=== PATIENT | female | born 1935 | race Caucasian/White ===

== ENCOUNTER → 2020-06-17 | Outpatient (CLI) | payer OTHER | LOC: HYPER 12:49 | PROVIDERS: ATTEND Emergency Medicine | DX: L89.893 Pressure ulcer of other site, stage 3 (principal); L84 Corns and callosities; G60.3 Idiopathic progressive neuropathy; I70.91 Generalized atherosclerosis; I73.9 Peripheral vascular disease, unspecified; I10 Essential (primary) hypertension; E78.5 Hyperlipidemia, unspecified; E89.0 Postprocedural hypothyroidism; K21.9 Gastro-esophageal reflux disease without esophagitis; M14.671 Charcot's joint, right ankle and foot; M85.80 Other specified disorders of bone density and structure, unspecified site; Z87.891 Personal history of nicotine dependence ==

== ENCOUNTER → 2020-07-02 | Outpatient (CLI) | payer OTHER | LOC: HYPER 09:01 | PROVIDERS: ATTEND Emergency Medicine | DX: L89.893 Pressure ulcer of other site, stage 3 (principal); L84 Corns and callosities; G60.3 Idiopathic progressive neuropathy; I70.91 Generalized atherosclerosis; I73.9 Peripheral vascular disease, unspecified; I10 Essential (primary) hypertension; E78.5 Hyperlipidemia, unspecified; E89.0 Postprocedural hypothyroidism; K21.9 Gastro-esophageal reflux disease without esophagitis; M14.671 Charcot's joint, right ankle and foot; M85.80 Other specified disorders of bone density and structure, unspecified site; Z87.891 Personal history of nicotine dependence ==

== ENCOUNTER → 2020-07-16 | Outpatient (CLI) | payer OTHER | LOC: HYPER 10:58 | PROVIDERS: ATTEND Emergency Medicine | DX: L89.893 Pressure ulcer of other site, stage 3 (principal); L84 Corns and callosities; G60.3 Idiopathic progressive neuropathy; I70.91 Generalized atherosclerosis; I73.9 Peripheral vascular disease, unspecified; I10 Essential (primary) hypertension; E78.5 Hyperlipidemia, unspecified; E89.0 Postprocedural hypothyroidism; K21.9 Gastro-esophageal reflux disease without esophagitis; M14.671 Charcot's joint, right ankle and foot; M85.80 Other specified disorders of bone density and structure, unspecified site; Z87.891 Personal history of nicotine dependence ==

== ENCOUNTER → 2020-07-30 | Outpatient (CLI) | payer OTHER | LOC: HYPER 11:54 | PROVIDERS: ATTEND Emergency Medicine | DX: L89.893 Pressure ulcer of other site, stage 3 (principal); L84 Corns and callosities; G60.3 Idiopathic progressive neuropathy; I70.91 Generalized atherosclerosis; I73.9 Peripheral vascular disease, unspecified; I10 Essential (primary) hypertension; E78.5 Hyperlipidemia, unspecified; E89.0 Postprocedural hypothyroidism; K21.9 Gastro-esophageal reflux disease without esophagitis; M14.671 Charcot's joint, right ankle and foot; M85.80 Other specified disorders of bone density and structure, unspecified site; Z87.891 Personal history of nicotine dependence ==

== ENCOUNTER 2020-08-07 09:20 | Inpatient (IN) | payer OTHER ==
[~2020-08-07] VITALS: Ht 167.6 cm; Wt 52.2 kg
--- NOTE | ~2020-08-07 | O ---
[facility] [place] [address] [place] [address] OPERATIVE REPORT Name: TRI ACHARYA Room #: 150-1 ADM IN M.R.#: [id number] Admission: 08/14/20 Attend Phys: Agustín Watt MD Discharge: Date of : 39 Report #: [id number] THIS REPORT FOR: cc: Greer Ballesteros MD, Laurie Dawn MD Kneidel,Agustín Padilla MD ~ DATE OF SERVICE: 08/14/2020 PREOPERATIVE DIAGNOSES: 1. Right foot nonhealing wound. 2. Right foot rocker bottom deformity. POSTOPERATIVE DIAGNOSES: 1. Right foot nonhealing wound. 2. Right foot rocker bottom deformity. PROCEDURES: 1. Right foot irrigation and debridement. 2. Right foot plantar ostectomy. SURGEON: Dr. Agustín Watt. PROCESS TECHNICIAN: Juliana Carrington. ANESTHESIA: General. ESTIMATED BLOOD LOSS: Minimal. DRAINS: One Hemovac drain was placed. COMPLICATIONS: There were no complications. DESCRIPTION OF PROCEDURE: The patient brought to the operating room where she was placed under general anesthesia. Once under adequate general anesthesia, her right lower extremity was prepped and draped in a sterile manner. The extremity was elevated and tourniquet placed to 300 mmHg. A lateral incision 4-5 cm in length was then made over the lateral mid foot, dissected directly plantar down to the plantar cuboid, which was protruding in the plantar foot. This was causing the plantar wound. Cultures were taken at this time. A sagittal saw was then used to transect the plantar cuboid as well as any protruding bone in the plantar foot. This was then removed utilizing a rongeur. This was smoothed off with a rongeur as well, leaving a smooth surface on the plantar foot the patient to ambulate on. The wound was then irrigated copiously and closed over a Hemovac drain with 2-0 nylon suture for the skin. The wound was dressed with Xeroform, 4 x 4s, and sterile soft compressive dressing was [facility] [address] [place] [address] OPERATIVE REPORT Name: TRI ACHARYA Room #: [address] [place] [address] IN ..#: [id number] Admission: 08/14/20 Attend Phys: Agustín Watt MD Discharge: Date of : 39 Report #: [id number]. Tourniquet was let down approximately 20 minutes. Toes were pink and warm with good capillary refill. There were no complications from the procedure. The patient tolerated the procedure well and was taken to recovery room without incident. By: 1138 [id number] Agustín Watt MD /nt
[2020-08-12] MEDS ORDERED: MIRAPEX ER1.5 MG PO (12:54)
[2020-08-12] MEDS ORDERED: WELLBUTRIN SR150 M1 PO (12:55)
[2020-08-12] MEDS ORDERED: ESCITALOPRAM OX20 MG PO (12:55)
[2020-08-12] MEDS ORDERED: KEFLEX500 M1 PO (12:56)
[2020-08-12] MEDS ORDERED: COZAAR 50 MG TA50 MG PO (12:56)
[2020-08-12] MEDS ORDERED: GABAPENTIN600 M1 PO (12:57)
[2020-08-12] MEDS ORDERED: CARBIDOPA-LEVO1 EAC9 PO (12:58)
[2020-08-12] MEDS ORDERED: PLAQUENIL200 MG PO (13:00)
[2020-08-12] MEDS ORDERED: DICLOFENAC SODI75 MG PO (13:00)
[2020-08-14 09:55] VITALS: BP 162/76
[2020-08-14 15:00] VITALS: BP 137/78
--- NOTE | 2020-08-14 15:12 | EKG ---
[place] [address] [facility] [place] [address] ELECTROCARDIOGRAM REPORT Name: TRI ACHARYA Room #: 433-I [facility] IN .R.#: [id number] Admission: 08/14/20 Attend Phys: Agustín Watt MD Discharge: Date of : 39 Report #: [id number] [facility] Test Date: 2020-08-14 Test Time: 09:56:37 Pat Name: TRI ACHARYA Department: Room: [facility] Gender: F Dag Sprayer: KATE : 1935 Requested By: Agustín Watt Order Number: [id number] MD: Lamonte Jordan Measurements Intervals [place] Rate: 69 P: 57 ME: 191 QRS: -40 QRSD: 106 T: 50 QT: 452 QTc: 485 Interpretive Statements Sinus rhythm Inferior infarct, old Baseline wander in lead(s) I,III,aVL,V4 No previous ECG available for comparison Electronically Signed On 08-14-2020 15:12:37 CDT by Lamonte Jordan [email or web address] <ELECTRONICALLY SIGNED> By: Lamonte Jrodan MD, [facility] 08/14/20 1512 Lamonte Jordan MD, [facility] /EPI
[2020-08-14] MEDS ORDERED: ASA81BEC PO (16:00)
[2020-08-14] MEDS ORDERED: BIOTIN2500 MCG PO (16:02)
[2020-08-14] MEDS ORDERED: PREDNISONE 5 MG5 MG PO (16:03)
[2020-08-14] MEDS ORDERED: LEVO-T75 MCG PO (16:05)
[2020-08-14] MEDS ORDERED: OMEPRAZOLE 20 M20 M1 PO (16:05)
[2020-08-14] MEDS ORDERED: VITAMIN B-121000 MC2 PO (16:06)
[2020-08-14] MEDS ORDERED: VITAMIN D325 MC1 PO (16:07)
[2020-08-14] MEDS ORDERED: ROSUVASTATIN CA20 MG PO (16:07)
--- NOTE | 2020-08-14 16:15 | NUR ---
ASSUMED PT CARE AT 1440. PT IS ALERT & ORIENTED X4. PT HAD A R FOOT I & D. PT C/O OF PAIN AND GIVEN PAIN MEDICATION. PT GRANDDAUGHTER AT THE BEDSIDE. PT ON THE BED WATCHING TV, BED ON THE LOWEST POSITION, SIDE RAILS UP, CALL LIGHT WITHIN REACH. WILL CONTINUE TO MONITOR PT. FOLLOW POC.
[2020-08-14 17:00] LABS: ABSOLUTE NEUTROPHILS 5.2 thou/uL (1.4-8.2); BASOPHILS 0.8 % (0.0-2.0); EOSINOPHILS 2.1 % (0.0-3.0); HEMATOCRIT 30.8 % (37.0-47.0); HEMOGLOBIN 10.3 gm/dL (12.0-15.0); LYMPHOCYTES 10.8 % (24.0-44.0); MCH 27.8 pg (26.0-34.0); MCHC 33.3 g/dL (28.0-37.0); MCV 83.4 fL (80.0-100.0); MONOCYTES 6.5 % (1.0-8.0); PLATELET COUNT 242 thou/uL (150-400); POLYS 79.8 % (36.0-66.0); WBC 6.5 thou/uL (4.0-11.0)
[2020-08-14 17:15] LABS: ALBUMIN 3.5 g/dL (3.4-5.0); CALCIUM 9.1 mg/dL (8.5-10.1); CREATININE 0.7 mg/dL (0.6-1.0); POTASSIUM 3.4 mmol/L (3.5-5.1); TOTAL BILIRUBIN 0.4 mg/dL (0.2-1.0); TOTAL PROTEIN 6.8 g/dL (6.4-8.2)
[2020-08-14 19:45] VITALS: BP 143/85
--- NOTE | 2020-08-15 01:21 | NUR ---
ASSESSED AT START OF SHIFT PT DENIES PAIN ON ASSESSMENT. FAMILY BY BEDSIDE. IV INTACT AND ABX GIVEN. RT FOOT DRESSING C/D/I WITH HEMOVAC IN PLACE ELEVATED ON PILLOW. NON WIEGHT BEARING ON THAT RT RT LEG. FALL PREC IN PLACE POTASSIUM PILL GIVEN X1 3.[address] ORDER. SCD'S IN PLACE AND FALL PREC IN PLACE WILL CONT TO MONITOR.
[2020-08-15 03:17] VITALS: BP 139/79
[2020-08-15 05:06] LABS: HEMATOCRIT 31.3 % (37.0-47.0); HEMOGLOBIN 10.1 gm/dL (12.0-15.0)
[2020-08-15 05:46] LABS: POTASSIUM 4.2 mmol/L (3.5-5.1)
[2020-08-15 07:56] VITALS: BP 122/71
--- NOTE | 2020-08-15 10:17 | NUR ---
ASSUMED CARE OF PT AT 0700 THIS MORNING. PT WAS ADMITTED POST OP FOR SURGERY ON RIGHT FOOT. DRESSING ON RIGHT FOOT CDI WITH VACUPUMP AND FAITH WRAP. PT IS A/OX4, EYES PERRLA, SKIN INTACT, W/D/P, NO TENTING. LUNGS CLEAR BILAT, ABD SOFT NONNDER, IV IN RIGHT HAND SL, CR<3SEC, ASSESSMENT OTHERWISE UNREMARKABLE. PT C/O PAIN IN RIGHT FOOT AT 5 ON 1/10 SCALE. PT WAS GIVEN HYDRO/APAP FOR PAIN. PHYS TH. WORKED WITH PT THIS MORNING WITH NO WEIGHT BEARING ON RIGHT FOOT. PT DID WELL AND IS NOW SITIING IN THE CHAIR. CALL LIGHT AND OTHER NEEDS IN REACH.
--- NOTE | 2020-08-15 12:28 | NUR ---
ASSESSMENT: CM REVIEWED CHART AND MET WITH PT AT THE BEDSIDE. PT IS ALERT AND ORIENTED X4. PT REPORTS THAT SHE LIVES IN AN APT WITH HER . PT REPORTS THAT SHE HAS A CANE AND WALKER AT HOME. PT WAS ADMITTED AFTER I&D DUE TO RIGHT FOOT WOUND. PT WILL BE NWB FOR ABOUT 3 WEEKS. [facility] WAS CONSULTED TO EVALUATE PT. CM SPOKE WITH [employer]N RIDE MECHANIC WHO REPORTS SHE WILL TALK WITH ID ABOUT THE DURATION OF IV ANBX. PT IS AGREEABLE TO [facility] BUT IF THEY CANNOT ACCEPT SHE STATES SHE HAS BEEN TO [facility] IN THE PAST AND IS OPEN TO GOING THERE. CM FAXED REFERRAL TO [facility] A BACKUP PLAN. PT REMAINS ON IV ANBX. AWAITING FURTHER INPUT FROM [facility]. CM WILL CONTINUE TO FOLLOW TO ASSIST NEEDED.
--- NOTE | 2020-08-15 12:31 | HC ---
[facility] [place] [address] CONSULTATION Name: TRI ACHARYA Room #: 433-I ADM IN .R.#: [id number] Admission: 08/14/20 Attend Phys: Agustín Watt MD Discharge: Date of : 39 Report #: [id number] THIS REPORT FOR: cc: Greer Ballesteros MD, Laurie Dawn MD Barry, Joseph W. MD ~ DATE OF SERVICE: 08/14/2020 INFECTIOUS DISEASE CONSULTATION ATTENDING PHYSICIAN: Dr. Watt. 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 HISTORY OF PRESENT ILLNESS: Chart reviewed, patient examined. This is an 84-year-old woman with history of rheumatoid arthritis, which has been complicated by Charcot deformity of her right foot. There is chronic ulceration overlying the mid portion. She does have a degree of peripheral neuropathy as well. She noted onset of ulceration several months ago, which has been debrided at least once. Cultures have been collected. She has been on antibiotics periodically, although she is unaware of any positive culture results. She has been followed by the wound care center with serial debridements, the absence of healing over the course of the last recent days, noted a malodorous drainage from the site. She was initiated on antibiotics, she is not certain which one. Due to concerns, she undergo MRI which is not available to me, but apparently showed some changes. She was admitted and underwent operative right foot irrigation and debridement of the plantar with plantar osteectomy. She is seen postoperatively. She does admit to pain. On questioning, she denies any systemic illness. No fevers or chills. Appetite has been diminished overall and she has had a 30-pound weight loss. No pulmonary-related complaints. ALLERGIES: None known. CURRENT MEDICATIONS: Include aspirin, hydrocodone, morphine. PAST MEDICAL HISTORY: As noted above, rheumatoid arthritis, obstructive sleep apnea, iron deficiency anemia. SOCIAL HISTORY: She is , former smoker, occasional ethanol, no illicit drug use. FAMILY HISTORY: Noncontributory. REVIEW OF SYSTEMS: Otherwise, unremarkable. [facility] [address] [place] [address] CONSULTATION Name: TIR ACHARYA Room #: 433-I [facility] IN [facility].#: [id number] Admission: 08/14/20 Attend Phys: Agustín Watt MD Discharge: Date of : 39 Report #: [id number] PHYSICAL EXAMINATION: GENERAL: She is alert, cooperative, appropriate. She appears somewhat chronically ill and undernourished, is pleasant, lucid. VITAL SIGNS: Temperature 97.7, pulse 67, respirations 18, blood pressure 137/78. SKIN: Warm, dry, no rashes. HEENT: Normocephalic. Extraocular muscles intact. NECK: Supple. LUNGS: Generally clear to auscultation. Somewhat diminished at the bases. There are few scattered crackles. HEART: Regular. I do not appreciate a murmur. ABDOMEN: Soft, nontender, nondistended. EXTREMITIES: Right lower extremity has an operative dressing with compression in place. JACINTA drain. GENITOURINARY AND RECTAL: Deferred. LABORATORY DATA: Drainage was collected for culture. Gram stain showed a few wbc's, no organisms seen. Coronavirus testing was negative as well. ASSESSMENT AND PLAN: Chronic ulceration involving the right foot Charcot deformity in a patient with rheumatoid arthritis who like to underwent partial osteoectomy. We will treat empirically with parenteral antimicrobials at this point, but try to obtain additional records in terms of previous cultures on when she has been on recently in terms of antimicrobials. Given the malodor, I would be concerned about a mixed infection. 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 We will check some baseline laboratory. Continue wound care as prescribed. Discussed with the patient and her daughter. <ELECTRONICALLY SIGNED> By: Nico White MD 08/15/20 1231 1619 41 Nico White MD /nt
[2020-08-15 16:43] VITALS: BP 151/87
[2020-08-15 20:51] VITALS: BP 142/85
--- NOTE | 2020-08-16 01:14 | NUR ---
ASSESSED AT START OF SHIFT. PT A&OX4 UP WITH ASSITX1 TO THE BSC. NWB ON THE RT FOOT. DRESSING C/D/I WITH HEMOVAC IN PLACE. RATES PAIN 10. ON RA, DENIES N/V. IV INTACT AND ABX INFUSING. FALL PREC IN PLACE AND CALL LIGHT AT REACH WILL CONT TO MONITOR.
[2020-08-16 07:10] VITALS: BP 111/73
--- NOTE | 2020-08-16 11:52 | NUR ---
ASSUMED PT CARE AROUND 0715. PT ALERT ORIENTED X 4. ON ROOM AIR.IV RT FA/ SALINE LOCKED.RT FOOT FAITH WRAPPED. 1 X PERSON ASST, NON WEIGHT BEARING OF RT FOOT.ON REGULAR DIET.FALL PRECAUTION IN PLACE. CALL LIGHT IN REACH. WILL CALL APPROPRIATELY. WILL CONTINUE TO MONITOR.
--- NOTE | 2020-08-16 14:14 | NUR ---
LYLE CONSULTED FOR A PICC FOR HOME ABX TODAY. SPOKE WITH PT 2X TODAY AND SHE WANTS TO SPEAK WITH THE MD ABOUT THE PICC AND HER HOME ABX FIRST BEFORE IT IS PLACED.
--- NOTE | 2020-08-16 14:46 | NUR ---
ON-GOING ASSESSMENT: CM REVIEWED CHART. MATT SPOKE WITH SELVIN IN ADMISSIONS AT [facility] WHO REPORTS THEY CAN ACCEPT THE PATIENT FOR SNF. PT HAS MEDICARE AND POSSIBLE DISCHARGE SATRUDAY TO [facility]. ONCE PATIENT IS MEDICALLY STABLE FOR DISCHARGE CONTACT SELVIN AT [facility] TO FACILITATE DISCHARGE ON ADMISSIONS CELL:[phone]. CHART COPY WILL NEED TO BE ORDERED. D/C SUMMARY AND ORDERS WILL NEED TO BE FAXED TO THE NUMBER HE PROVIDES AND HE WILL INITIATE TRANSPORT WHEN YOU NOTIFY HIM. HE REPORTS THEY DO NOT NEED ANOTHER COVID TEST. CM SPOKE WITH PATIENTS JANICE TO UPDATE (CONTACT HIM TO NOTIFY HIM OF THE TIME OF DISCHARGE). PT REPORTS NO FURTHER NEEDS FROM CM. NUMBER FOR REPORT: [facility] [phone]. FAX:[phone]
[2020-08-16 16:02] VITALS: BP 165/78
[2020-08-16 20:26] VITALS: BP 150/83
--- NOTE | 2020-08-17 04:02 | NUR ---
RECEIVED CARE OF THIS PATIENT AT 1900. PATIENT ALERT AND ORIENTED X4. C/O PAIN AND ANXIETY, MED GIVEN FOR BOTH. DRESSING ON R FT D/I. UP TO BSC BY STANDING AND PIVOTING TO BSC.SLEPT OFF AND ON DURING NIGHT.
[2020-08-17 09:00] VITALS: BP 142/88; BP 144/76; BP 153/95
--- NOTE | 2020-08-17 13:26 | NUR ---
VAT CONSULTED FOR PICC PLACEMENT PRIOR TO DC TODAY. DISCUSSED BENEFITS AND RISK WITH PT, VERBALIZED UNDERSTANDING. ALFREDTyrel AYOUB WAS WIDELY PATENT WITH USG, MEASURED 32%. ORDER,CONSENT,MEDS,LABS,HX REVIEWED 4FR SL POWER PICC TRIMMED TO 43CM INSERTED TO 0CM WITH PEAKEDP-WAVES ON 3CG FOR CONFIRMATION. PT TOLERATED WELL. PICC RELEASED FOR IMMEDIATE USE PER PROTOCOL TO STEFFANY JIMENEZ. WALLET CARD GIVEN TO PT
--- NOTE | 2020-08-17 14:49 | NUR ---
ASSUMED PT CARE AROUND 0700. PT ALERT X ORIENTED X 4. ON ROOM AIR.NO CODE. PAIN PARTIALLY CONTROLLED BY PAIN MEDICINE. IV RT FA DC'D AND PICC LINE INSERTED AROUND 1300. PT GETTING DISCHARGED WITH IV ANTIBIOTIC TO [facility]. RN SPOKE WITH SELVIN IN THE ADMISSIONS, HE SAID TRANSPORTATION AVAILABLE TO PICK HER AT 1600. RN NOTIFIED THE INFORMATION TO PT AND HER WHO IS AT THE BEDSIDE. RN FAXEDDC SUMMARY AND MED ORDERS TO [phone] (FAX) AND CALLED AT [phone] TWO TIMES TO GIVE REPORT, BUT NONE PICKED THE CALL, LEFT VOICE MESSAGE TO CALL BACK.
== END 2020-08-17 15:59 | DRG 504 ==
LOC: PRE 09:20 → 4S 08-14 09:10 → TBA 08-14 09:10 → PRE 08-14 09:48 → 4S 08-14 14:59 → PRE 08-23 13:58
PROVIDERS: Specialist; Student in an Organized Health Care Education/Training Program; ADMIT Orthopaedic Surgery Foot and Ankle Surgery; ATTEND Orthopaedic Surgery Foot and Ankle Surgery
DX: M86.8X7 Other osteomyelitis, ankle and foot (principal); L97.419 Non-pressure chronic ulcer of right heel and midfoot with unspecified severity; E46 Unspecified protein-calorie malnutrition; Z68.1 Body mass index [BMI] 19.9 or less, adult; M06.9 Rheumatoid arthritis, unspecified; D64.9 Anemia, unspecified; E87.6 Hypokalemia; I10 Essential (primary) hypertension; F32.9 Major depressive disorder, single episode, unspecified; G20 Parkinson's disease; E03.9 Hypothyroidism, unspecified; G47.33 Obstructive sleep apnea (adult) (pediatric); S91.301A Unspecified open wound, right foot, initial encounter; M14.60 Charcot's joint, unspecified site; X58.XXXA Exposure to other specified factors, initial encounter; Z66 Do not resuscitate; Z20.822 Contact with and (suspected) exposure to COVID-19; Z98.42 Cataract extraction status, left eye; Z98.41 Cataract extraction status, right eye; Z99.81 Dependence on supplemental oxygen; Z79.82 Long term (current) use of aspirin; Z79.899 Other long term (current) drug therapy; Z87.891 Personal history of nicotine dependence; Y93.89 Activity, other specified; Y92.89 Other specified places as the place of occurrence of the external cause; Y99.8 Other external cause status
CPT/HCPCS: 10102; 27000; 50010; 50101; 50386; 50951; 56525; 57091; 57179; 62110; 62900; 70005